=== PATIENT | male | born 1970 | race Caucasian/White ===

== ENCOUNTER 2018-02-25 17:39 | Emergency (ER) | payer OTHER ==
[2018-02-25 17:40] VITALS: BP 149/102
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
== END 2018-02-25 17:50 ==
LOC: ER 17:46
DX: Z02.89 Encounter for other administrative examinations (principal); F10.920 Alcohol use, unspecified with intoxication, uncomplicated
CPT/HCPCS: 99281